=== PATIENT | male | born 1960 | race Caucasian/White ===

== ENCOUNTER 2023-10-14 07:46 | Emergency (ER) | payer OTHER ==
[2023-10-14 07:56] VITALS: TEMP 98.5
--- NOTE | 2023-10-14 08:19 | ED ---
General Adult HPI - General Chief complaint: Abdominal Pain Stated complaint: Tightness in chest Time Seen by Provider: 10/14/23 07:50 Source: patient, RN notes reviewed, old records reviewed Mode of arrival: ambulatory Limitations: no limitations - History of Present Illness Initial comments: This is a 63-year-old male with past medical history significant for hypertension. Patient presents today stating that at 330 this morning he woke up with pain throughout his whole abdomen and his back. Patient states its like a internal pressure there is no specific area of pain. Patient states he felt kind of sweaty and very nauseous but did not vomit. Patient denies any diarrhea. Patient denies any fever or chills. Patient denies chest pain or pal pitations or difficulty breathing or shortness of breath. Patient denies any headache patient has numbness weakness. Patient denies being on any blood thinners. Patient denies any numbness or weakness. - Related Data Previous Rx's Medication Instructions Recorded Cyclobenzaprine [Flexeril] 10 mg PO TID #20 tab 10/14/23 Ketorolac [Toradol] 10 mg PO Q6HR #15 tab 10/14/23 Allergies Allergy/AdvReac Type Severity Reaction Status Date / Time No Known Allergies Allergy Verified 10/14/23 07:51 Review of Systems ROS Statement: Those systems with pertinent positive or pertinent negative responses have been documented in the HPI. ROS Other: All systems not noted in ROS Statement are negative. Past Medical History Past Medical History: Hyperlipidemia, Hypertension History of Any Multi-Drug Resistant Organisms: None Reported Past Surgical History: Tonsillectomy Past Psychological History: No Psychological Hx Reported Smoking Status: Never smoker Past Alcohol Use History: Occasional Past Drug Use History: None Reported General Exam - General Exam Comments Initial Comments: GENERAL: Patient is well-developed and well-nourished. Patient is nontoxic and well- hydrated and is in moderate distress. ENT: Neck is soft and supple. No significant lymphadenopathy is noted. Oropharynx is clear. Moist mucous membranes. Neck has full range of motion without eliciting any pain. EYES: The sclera were anicteric and conjunctiva were pink and moist. Extraocular movements were intact and pupils were equal round and reactive to light. Eyelids were unremarkable. PULMONARY: Unlabored respirations. Good breath sounds bilaterally. No audible rales rhonchi or wheezing was noted. CARDIOVASCULAR: There is a regular rate and rhythm without any murmurs gallops or rubs. ABDOMEN: Soft and nontender with normal bowel sounds. SKIN: Skin is clear with no lesions or rashes and otherwise unremarkable. NEUROLOGIC: Patient is alert and oriented x3. Cranial nerves II through XII are grossly intact. Motor and sensory are also intact. Normal speech, volume and content. Symmetrical smile. MUSCULOSKELETAL: Normal extremities with adequate strength and full range of motion. LYMPHATICS: No significant lymphadenopathy is noted PSYCHIATRIC: Normal psychiatric evaluation. Limitations: no limitations Course Vital Signs 10/14/23 10/14/23 10/14/23 07:47 09:51 10:48 Temperature 98.5 F Pulse Rate 76 70 76 Respiratory 18 16 18 Rate Blood Pressure 151/79 112/80 142/83 O2 Sat by Pulse 100 98 98 Oximetry Medical Decision Making - Medical Decision Making Was pt. sent in by a medical professional or institution (, [facility], [facility], urgent care, hospital, or [facility]...) When possible be specific @ -No Did you speak to anyone other than the patient for history (EMS, parent, family, police, friend...)? What history was obtained from this source @ -No Did you review nursing and triage notes (agree or disagree)? Why? @ -I reviewed and agree with nursing and triage notes Were old charts reviewed (outside hosp., previous admission, EMS record, old EKG, old radiological studies, urgent care reports/EKG's, [facility] records)? Report findings @ -No old charts were reviewed Differential Diagnosis (chest pain, altered mental status, abdominal pain women, abdominal pain men, vaginal bleeding, weakness, fever, dyspnea, syncope, headache, dizziness, GI bleed, back pain, seizure, CVA, palpatations, mental health, musculoskeletal)? @ -MDM abdominal pain man EKG interpreted by me (3pts min.). @ -As above X-rays interpreted by me (1pt min.). @ -None done CT interpreted by me (1pt min.). @ -CT abdomen pelvis showed no acute abnormality U/S interpreted by me (1pt. min.). @ -None done What testing was considered but not performed or refused? (CT, X-rays, U/S, labs)? Why? @ -None What meds were considered but not given or refused? Why? @ -None Did you discuss the management of the patient with other professionals (tamie oliver i.e. , PA, PIE [employer]ER, lab, RT, psych nurse, social welfare clerk, hazardous material specialist, teacher, peace officer, director of casework services)? Give summary @ -No Was smoking cessation discussed for >3mins.? @ -No Was critical care preformed (if so, how long)? @ -No Were there social determinants of health that impacted care today? How? (Homelessness, low income, unemployed, alcoholism, drug addiction, transportation, low edu. Level, literacy, decrease access to med. care, long-term, rehab)? @ -No Was there de-escalation of care discussed even if they declined (Discuss DNR or withdrawal of care, Hospice)? DNR status @ -No What co-morbidities impacted this encounter? (DM, HTN, Smoking, COPD, CAD, Cancer, CVA, ARF, Chemo, Hep., AIDS, mental health diagnosis, sleep apnea, morbid obesity)? @ -None Was patient admitted / discharged? Hospital course, mention meds given and route, prescriptions, significant lab abnormalities, going to OR and other pertinent info. @ -I went back and discussed the results of the lab work and CAT scan with the patient. Patient was feeling much better after he had Toradol and Norflex and he did think that this was muscular because he states he has not in the past. Undiagnosed new problem with uncertain prognosis? @ -No Drug Therapy requiring intensive monitoring for toxicity (Heparin, Nitro, Insulin, Cardizem)? @ -No Were any procedures done? @ -No Diagnosis/symptom? @ -Abdominal pain muscular Acute, or Chronic, or Acute on Chronic? @ -Acute Uncomplicated (without systemic symptoms) or Complicated (systemic symptoms)? @ -Complicated Side effects of treatment? @ -No Exacerbation, Progression, or Severe Exacerbation? @ -No Poses a threat to life or bodily function? How? (Chest pain, [place], [place], pneumonia, PE, COPD, DKA, ARF, appy, cholecystitis, CVA, Diverticulitis, Homicidal, Suicid al, threat to staff... and all critical care pts) @ -No - Lab Data Result diagrams: 10/14/23 08:17 10/14/23 08:17 Lab Results 10/14/23 10/14/23 10/14/23 Range/Units 08:17 08:17 08:17 WBC 10.0 (3.8-10.6) k/uL RBC 5.08 (4.30-5.90) m/uL Hgb 15.0 (13.0-17.5) gm/dL Hct 44.6 (39.0-53.0) % MCV 87.8 (80.0-100.0) fL MCH 29.4 (25.0-35.0) pg MCHC 33.5 (31.0-37.0) g/dL RDW 12.7 (11.5-15.5) % Plt Count 199 (150-450) k/uL MPV 8.4 Neutrophils % 84 % Lymphocytes % 12 % Monocytes % 3 % Eosinophils % 1 % Basophils % 0 % Neutrophils # 8.3 H (1.3-7.7) k/uL Lymphocytes # 1.2 (1.0-4.8) k/uL Monocytes # 0.3 (0-1.0) k/uL Eosinophils # 0.1 (0-0.7) k/uL Basophils # 0.0 (0-0.2) k/uL APTT 22.5 (22.0-30.0) sec Sodium 133 L (137-145) mmol/L Potassium 3.3 L (3.5-5.1) mmol/L Chloride 97 L (98-107) mmol/L Carbon Dioxide 18 L (22-30) mmol/L Anion Gap 18 mmol/L BUN 15 (9-20) mg/dL Creatinine 0.78 (0.66-1.25) mg/dL Est GFR (CKD-EPI)AfAm >90 (>60 ml/min/1.73 sqM) Est GFR (CKD-EPI)NonAf >90 (>60 ml/min/1.73 sqM) Glucose 161 H (74-99) mg/dL Plasma Lactic Acid Adal (0.7-2.0) mmol/L Calcium 10.0 (8.4-10.2) mg/dL Total Bilirubin 0.6 (0.2-1.3) mg/dL AST 30 (17-59) U/L ALT 51 H (4-49) U/L Alkaline Phosphatase 41 (38-126) U/L Total Protein 7.9 (6.3-8.2) g/dL Albumin 5.1 H (3.5-5.0) g/dL Amylase 56 (30-110) U/L Lipase 228 (23-300) U/L Urine Color Urine Appearance (Clear) Urine pH (5.0-8.0) Ur Specific Hayes (1.001-1.035) Urine Protein (Negative) Urine Glucose (UA) (Negative) Urine Ketones (Negative) Urine Blood (Negative) Urine Nitrite (Negative) Urine Bilirubin (Negative) Urine Urobilinogen (<2.0) mg/dL Ur Leukocyte Esterase (Negative) 10/14/23 10/14/23 Range/Units 08:17 09:30 WBC (3.8-10.6) k/uL RBC (4.30-5.90) m/uL Hgb (13.0-17.5) gm/dL Hct (39.0-53.0) % MCV (80.0-100.0) fL MCH (25.0-35.0) pg MCHC (31.0-37.0) g/dL RDW (11.5-15.5) % Plt Count (150-450) k/uL MPV Neutrophils % % Lymphocytes % % Monocytes % % Eosinophils % % Basophils % % Neutrophils # (1.3-7.7) k/uL Lymphocytes # (1.0-4.8) k/uL Monocytes # (0-1.0) k/uL Eosinophils # (0-0.7) k/uL Basophils # (0-0.2) k/uL APTT (22.0-30.0) sec Sodium (137-145) mmol/L Potassium (3.5-5.1) mmol/L Chloride (98-107) mmol/L Carbon Dioxide (22-30) mmol/L Anion Gap mmol/L BUN (9-20) mg/dL Creatinine (0.66-1.25) mg/dL Est GFR (CKD-EPI)AfAm (>60 ml/min/1.73 sqM) Est GFR (CKD-EPI)NonAf (>60 ml/min/1.73 sqM) Glucose (74-99) mg/dL Plasma Lactic Acid Adal 1.4 (0.7-2.0) mmol/L Calcium (8.4-10.2) mg/dL Total Bilirubin (0.2-1.3) mg/dL AST (17-59) U/L ALT (4-49) U/L Alkaline Phosphatase (38-126) U/L Total Protein (6.3-8.2) g/dL Albumin (3.5-5.0) g/dL Amylase (30-110) U/L Lipase (23-300) U/L Urine Color Colorless Urine Appearance Clear (Clear) Urine pH 5.0 (5.0-8.0) Ur Specific Hayes >1.050 H (1.001-1.035) Urine Protein Negative (Negative) Urine Glucose (UA) Negative (Negative) Urine Ketones 3+ H (Negative) Urine Blood Negative (Negative) Urine Nitrite Negative (Negative) Urine Bilirubin Negative (Negative) Urine Urobilinogen <2.0 (<2.0) mg/dL Ur Leukocyte Esterase Negative (Negative) Disposition Clinical Impression: Abdominal pain Disposition: HOME SELF-CARE Instructions (If sedation given, give patient instructions): Abdominal Pain (ED) Prescriptions: Cyclobenzaprine [Flexeril] 10 mg PO TID #20 tab Ketorolac [Toradol] 10 mg PO Q6HR #15 tab Is patient prescribed a controlled substance at d/c from ED?: No Referrals: Nhan Jones MD [Primary Care Provider] - 1-2 days Time of Disposition: 11:00
[2023-10-14] MEDS: HYDROmorphone 0.5 MG/0.5 ML SYRINGE IVP STA (08:27)
[2023-10-14] MEDS: ONDANSETRON 4 MG/2 ML VIAL IVP STA (08:29)
[2023-10-14 08:30] LABS: Basophils % (A) 0 %; Eosinophils # (A) 0.1 k/uL (0-0.7); Eosinophils % (A) 1 %; HCT 44.6 % (39.0-53.0); Lymphocytes # (A) 1.2 k/uL (1.0-4.8); Lymphocytes % (A) 12 %; MCH 29.4 pg (25.0-35.0); MCHC 33.5 g/dL (31.0-37.0); MCV 87.8 fL (80.0-100.0); Mean Platelet Volume 8.4; Monocytes # (A) 0.3 k/uL (0-1.0); Monocytes % (A) 3 %; Neutrophils # (A) 8.3 k/uL (1.3-7.7); Neutrophils % (A) 84 %; Platelet Count 199 k/uL (150-450); RBC 5.08 m/uL (4.30-5.90); RDW 12.7 % (11.5-15.5)
[2023-10-14] MEDS: SODIUM CHLORIDE 0.9% 500 ML 500 ML IV STA (08:32)
[2023-10-14 08:42] LABS: ALT 51 U/L (4-49); AST 30 U/L (17-59); African American GFR (CKD) >90 (>60 ml/min/1.73 sqM); Albumin 5.1 g/dL (3.5-5.0); Alkaline Phosphatase 41 U/L (38-126); Amylase 56 U/L (30-110); Anion Gap 18 mmol/L; Blood Urea Nitrogen 15 mg/dL (9-20); Carbon Dioxide 18 mmol/L (22-30); Chloride 97 mmol/L (98-107); Glucose 161 mg/dL (74-99); Lipase 228 U/L (23-300); Non-African American GFR(CKD) >90 (>60 ml/min/1.73 sqM); Potassium 3.3 mmol/L (3.5-5.1); Sodium 133 mmol/L (137-145); Total Bilirubin 0.6 mg/dL (0.2-1.3); Total Protein 7.9 g/dL (6.3-8.2)
--- NOTE | 2023-10-14 09:27 | CT ---
EXAMINATION TYPE: CT abdomen pelvis w con DATE OF EXAM: 10/14/2023 COMPARISON: None INDICATION: abd pain DLP: 1591.5 mGycm, Automated exposure control for dose reduction was used. CONTRAST: 100 mL of Isovue 300. Study performed without Oral Contrast TECHNIQUE: Axial images were obtained from above the diaphragm to the pubic rami in the axial plane a t 5 mm thick sections. Reconstructed images are reviewed on the computer in the coronal plane. FINDINGS: Limited CT sections are obtained the lung bases. The lung bases are clear. Coronary artery calcific ation is present. CT ABDOMEN: Liver: There is moderate fatty infiltration to the liver. Spleen: Normal Pancreas: Normal Adrenal glands: There may be some low density extension from the left adrenal gland may be a small li radha. Gallbladder: Normal Kidneys: No masses are evident. No hydronephrosis is present. There is a 1.9 cm cyst at the superio r pole left kidney there is a 0.7 cm cortical cyst at the inferior pole right kidney. Delayed images were obtained through the kidneys, which remain unremarkable. Aorta: Normal Inferior vena cava: Normal. CT PELVIS: Loops of bowel within the abdomen and pelvis are normal. The study is without oral contrast limit ing bowel evaluation. Appendix: Normal as visualized. Urinary bladder: Normal. Genitourinary structures: Prostate appears normal Osseous structures: No suspicious lytic or sclerotic lesions. Facet changes are present. IMPRESSION: 1. No suspicious abnormalities to account for abdominal pain.
[2023-10-14 09:48] LABS: Appearance,Urine Clear (Clear); Bilirubin,Urine Negative (Negative); Blood,Urine Negative (Negative); Color,Urine Colorless; Glucose,Urine (UA) Negative (Negative); Ketones,Urine 3+ (Negative); Leukocyte Esterase,Urine Negative (Negative); Nitrite,Urine Negative (Negative); Protein,Urine Negative (Negative); Urobilinogen,Urine <2.0 mg/dL (<2.0)
[2023-10-14] MEDS: KETOROLAC 15 MG/ML 1 ML VIAL IVP STA (10:17)
[2023-10-14 10:18] LABS: Specific Gravity,Urine >1.050 (1.001-1.035)
[2023-10-14] MEDS: ORPHENADRINE 30 MG/ML 2 ML VIAL IVP STA (10:40)
[2023-10-14 11:31] VITALS: BP 142/83; PULSE 76; RESP 18
== END 2023-10-14 11:31 | disposition home or self-care (01) ==
LOC: EC 07:46
DX: R10.9 Unspecified abdominal pain (principal)
CPT/HCPCS: 99284; 96374; 96375 ×3; 96361 ×3; 36415; 93005; 80053; 82150; 83605; 83690; 85025; 85730; 81003; 74177; J2360; J2405; J1885; J1170; Q9967